=== PATIENT | female | born 1945 | race Two or more races ===

== ENCOUNTER → 2024-10-04 | Outpatient (BNVA) | payer OTHER, MEDICAID, SELFPAY | END | disposition home or self-care (01) | PROVIDERS: PCP Internal Medicine; Referring Provider Internal Medicine; Visit Provider Urology | DX: N32.81 Overactive bladder (principal); Z87.440 Personal history of urinary (tract) infections; E11.9 Type 2 diabetes mellitus without complications; I10 Essential (primary) hypertension; E78.5 Hyperlipidemia, unspecified; I25.811 Atherosclerosis of native coronary artery of transplanted heart without angina pectoris; E66.9 Obesity, unspecified; Z68.30 Body mass index [BMI] 30.0-30.9, adult; K21.9 Gastro-esophageal reflux disease without esophagitis | CPT/HCPCS: 81003; 99211; G0463 ==

== ENCOUNTER → 2025-04-05 | Outpatient (BNVA) | payer OTHER, MEDICAID, SELFPAY | END | disposition home or self-care (01) | PROVIDERS: PCP Internal Medicine; Referring Provider Internal Medicine; Visit Provider Urology | DX: N39.0 Urinary tract infection, site not specified (principal); N32.81 Overactive bladder; E11.9 Type 2 diabetes mellitus without complications; E78.5 Hyperlipidemia, unspecified; I10 Essential (primary) hypertension; I25.10 Atherosclerotic heart disease of native coronary artery without angina pectoris; E66.9 Obesity, unspecified; Z68.28 Body mass index [BMI] 28.0-28.9, adult; G47.30 Sleep apnea, unspecified | CPT/HCPCS: 81003; 99212; G0463 ==

== ENCOUNTER → 2025-04-28 | Outpatient (CLI) | payer OTHER, SELFPAY ==
--- NOTE | 2025-04-28 11:30 | XR_ITS ---
Examination: CTA abdominal aorta iliofemoral runoff. 2-D sagittal coronal reconstructions. 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 3-D reconstructions, vascular 3-D postprocessing, including vascular maximum intensity projection images, 3-D volume rendering Low dose protocols were performed. One or more of the following dose reduction techniques were used; automated exposure control, adjustment of the mA and/or KV according to patient size, use of iterative reconstruction technique. Findings: Retrocardiac gastric hernia No focal liver or splenic lesions Absent gallbladder No pancreatic or adrenal mass No renal or ureteral calculi, no hydronephrosis No bowel obstruction Normal appendix No diverticulitis Air in the urinary bladder, clinical correlation advised Absent uterus Abdominal aortic calcification no aneurysmal dilatation Heavy calcification origins of the celiac and superior mesenteric axes as well as right renal artery No significant stenosis common iliac and external iliac or common femoral arteries No critical stenosis right superficial femoral or right popliteal artery Multiple occlusions right anterior tibial artery beginning proximally Severely attenuated posterior tibial artery on the right Calcification left superficial femoral artery without critical stenoses Popliteal artery detail is obscured by the knee replacement Left anterior tibial artery does fill to the ankle Multiple occlusions involving the main continuation trunk as well as the left posterior tibial artery IMPRESSION: Significant bilateral trifurcation arterial disease as above
== END | disposition home or self-care (01) ==
PROVIDERS: Referring Provider Surgery Vascular Surgery; Visit Provider Surgery Vascular Surgery
DX: I77.89 Other specified disorders of arteries and arterioles (principal)
CPT/HCPCS: 75635; A4649; Q9967